=== PATIENT | male | born 2000 | race Caucasian/White ===

== ENCOUNTER 2025-07-03 10:05 | Emergency (ER) | payer BC, SELFPAY ==
[2025-07-03 10:34] VITALS: PULSE 74; RESP 16; TEMP 36.7; O2SAT 98; BMI 22.3
[2025-07-03] MEDS: tetracaine 0.5% Op Soln 4 mL Btl 1 DROP EYE-LEFT (10:44)
--- NOTE | 2025-07-03 11:00 | ED_ITS ---
HPI - Eye Problem General: Chief complaint: Eye Problems Stated complaint: L eye pain Time Seen by Provider: 07/03/25 10:40 Source: patient Mode of arrival: ambulatory Limitations: no limitations History of Present Illness: Patient is a 24-year-old male who presents emergency department complaining of left eye redness since last night. States that he fell asleep in his contacts, woke up and he thinks that he got something stuck on the contact and scratched his eye. 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 No visual changes, no pain with movement of the eyes. States he does have a headache on the pain. No fevers, is noting pain and tearing. Denies any sick contacts. Vital stable at this time, nontoxic-appearing. Denies recent URI. chief complaint: eye pain and eye redness Onset (ago): hour(s) Onset description: awoke with symptoms Duration: progressively worsening Location: left eye Eye Symptoms: burning, pain and foreign body sensation Mechanism: none Severity: severe Associated symptoms: Reports headache(s); Denies fever(s), nausea, neck pain or vomiting Treatments Prior to Arrival: none Related Data Previous Rx's ?Medication ?Instructions ?Recorded ciprofloxacin HCl 0.3 % eye drops See Rx Instructions ophthalmic 07/03/25 (eye) .COMPLEX #2.5 mL Allergies Allergy/AdvReac Type Severity Reaction Status Date / Time No Known Allergies Allergy Verified 07/03/25 10:36 Review of Systems General: Reports: 10 or more systems reviewed and unremarkable except in HPI and below Const: Denies: fever(s), chills or fatigue Eyes: Reports: eye discomfort, eye redness and increased production of tears; Denies: change in vision ENMT: Denies: throat pain, ear or mastoid pain or nasal discharge Card: Denies: chest pain, palpitations, swelling of feet/ankles or lightheadedness Resp: Denies: dyspnea, productive cough or wheezing GI: Denies: abdominal pain, nausea, vomiting, diarrhea or constipation : Denies: flank pain, difficulty urinating, dysuria or urinary frequency Musc: Denies: neck pain, back pain or joint pain Skin/Breast: Denies: rash Neuro: Reports: headache(s); Denies: numbness in extremities or weakness in extremities Physical Exam Const: COMMON NORMALS: no acute distress and no limitations GENERAL APPEARA NCE: cooperative, comfortable and well developed ORIENTATION/CONSCIOUSNESS: Yes awake HENMT: COMMON NORMALS: normocephalic, atraumatic and hearing grossly normal bilaterally HEAD & SCALP: normocephalic and atraumatic Eye: COMMON NORMALS: Equal, round and reactive pupils present and EOMs intact bilaterally PUPIL: Yes Equal, round and reactive pupils present OTHER: Diffuse left conjunctival injection. Vision normal. No pain with extraocular movements. No proptosis. Fluorescein stain does not reveal any dye uptake. Neck/C-Spine: COMMON NORMALS: full ROM and supple Extremity: COMMON NORMALS: normal to inspection, full ROM and capillary refill normal Skin: COMMON NORMALS: no rashes or lesions noted GENERAL SKIN EXAM: no rashes or lesions noted Course Vital Signs: Vital signs: Vital Signs Temperature 98.0 F 07/03/25 10:34 Pulse Rate 74 07/03/25 10:34 Respiratory Rate 16 07/03/25 10:34 Pulse Oximetry 98 07/03/25 10:34 Oxygen Delivery Me thod Room Air 07/03/25 10:34 MDM - Eye Problem Medical Decision Making Clinically this patient is presenting with signs and symptoms of bacterial conjunctivitis for which we will treat with ciprofloxacin drops as he has a contact wearer and did wear his contacts to bed. Less likely that this is trauma due to no corneal abrasion on exam, his vision is intact, there is no proptosis, or pain with extraocular movements making think of any retro-orbital abscess. Overall nontoxic and afebrile, he is informed to take the ciprofloxacin drops as prescribed and to return with any pain with extraocular movements, proptosis, severe retro-orbital pain, or any vision changes. No radiology studies performed this visit Discharge Plan Discharge Patient Disposition: Home Clinical Impression: Bacterial conjunctivitis Condition: Stable Prescriptions: New ciprofloxacin HCl 0.3 % drops See Rx Instructions .ROUTE .COMPLEX Qty: 2.5 0RF Rx Instructions: put 1-2 drps in affected eye(s) every 2hr up to 8 times/day x2days; then 4 times/day x5days Discharge Orders: Discharge ED (Routine); Ordered 07/03/25 Ordered By: Darek Christian Patient Instructions: Patient Portal & Maru Instructions Activity Restrictions/Additional Instructions: Bacterial Conjunctivitis Discharge Diagnosis: You have bacterial conjunctivitis ( pink eye ) in your left eye. This is an infection that causes redness, discharge, and irritation. Treatment: You will use ciprofloxacin eye ointment. - Apply a ? inch ribbon of ointment inside the lower eyelid (conjunctival sac) of the affected eye three times a day for the first two days, then two times a day for the next five days. - Wash your hands before and after applying the ointment. Contact Lenses: - Do not wear contact lenses until your eye is completely healed and all symptoms are gone. - Clean or replace your lenses and lens case before resuming use. Hygiene and Prevention: - Avoid touching or rubbing your eyes. - Wash your hands frequently, especially after touching your face or eyes. - Do not share towels, pillows, or other personal items. - Change pillowcases and towels daily until the infection clears. What to Expect: - Most cases improve within 1?2 weeks. Antibiotics help speed recovery and reduce the risk of complications. - The infection can spread to others for up to a week, so continue good hygiene. When to Seek Help: - If you develop severe pain, vision changes, increased redness, or swelling. - If symptoms do not improve after one week of treatment. - If you notice thick, yellow-green discharge or swelling around the eye. Follow-Up: - If you wear contact lenses, you are at higher risk for complications. If symptoms worsen or do not improve, contact your healthcare provider promptly. Precautions: - Stop using the ointment and seek medical attention if you develop a skin rash or any signs of an allergic reaction. If you have any questions or concerns, please contact your healthcare provider. Print Language: Mauritian Coding Level of Care Code ED Labor Relations Or Personnel Negotiator for [employer]
== END 2025-07-03 11:07 | disposition home or self-care (01) ==
PROVIDERS: Emergency Provider Physician Assistant
DX: H10.89 Other conjunctivitis (principal)
CPT/HCPCS: 99283; J9999